=== PATIENT | female | born 1995 | race Caucasian/White ===

== ENCOUNTER 2017-03-05 12:18 | Emergency (ER) | payer OTHER, BC ==
[~2017-03-05] VITALS: Ht 165.1 cm; Wt 66.4 kg
[2017-03-05] MEDS ORDERED: SKELAXIN800 MG PO (15:39)
[2017-03-05] MEDS ORDERED: NAPROSYN500 MG PO (15:39)
[2017-03-05] MEDS ORDERED: ULTRAM50 MG PO (15:39)
[2017-03-05] MEDS ORDERED: ZOFRAN ODT4 MG PO (15:39)
[2017-03-05 16:19] VITALS: BP 123/58
== END 2017-03-05 16:20 | disposition home or self-care (01) ==
LOC: EME 12:18
DX: S16.1XXA Strain of muscle, fascia and tendon at neck level, initial encounter (principal); S09.8XXA Other specified injuries of head, initial encounter; M25.512 Pain in left shoulder; V49.40XA Driver injured in collision with unspecified motor vehicles in traffic accident, initial encounter; Y92.411 Interstate highway as the place of occurrence of the external cause
CPT/HCPCS: 70450; 72125; 99281; 99283

== ENCOUNTER 2017-03-08 10:48 | Emergency (ER) | payer OTHER, BC ==
[~2017-03-08] VITALS: Ht 165.1 cm; Wt 67.5 kg
[~2017-03-08 10:48] MED LIST: NAPROSYN500 MG PO; SKELAXIN800 MG PO; ULTRAM50 MG PO; ZOFRAN ODT4 MG PO
[2017-03-08 14:58] VITALS: BP 113/70
== END 2017-03-08 14:59 | disposition home or self-care (01) ==
LOC: EME 10:48
DX: S16.1XXA Strain of muscle, fascia and tendon at neck level, initial encounter (principal); M54.12 Radiculopathy, cervical region; Z91.040 Latex allergy status; V49.40XD Driver injured in collision with unspecified motor vehicles in traffic accident, subsequent encounter; Y92.488 Other paved roadways as the place of occurrence of the external cause
CPT/HCPCS: 72141; 99281; 99284